=== PATIENT | female | born 1985 | race Caucasian/White ===

== ENCOUNTER 2019-07-30 11:39 | Emergency (ER) | payer BC, OTHER ==
[~2019-07-30] VITALS: Ht 172.7 cm; Wt 127.0 kg
--- NOTE | 2019-07-30 11:39 | NUR ---
BROUGHT BACK TO BED #5 AND TRIAGED. REPORT GIVEN TO PRASANNA
[2019-07-30 11:40] VITALS: BP_SYST 134
--- NOTE | 2019-07-30 11:41 | NUR ---
Patient to ER bed 05 to gown for evaluation. Side rails up.
[2019-07-30] MEDS ORDERED: LORazepam 2 MG/ML VIAL IM ONE (11:45)
--- NOTE | 2019-07-30 11:45 | NUR ---
Pt came to ER for anxiety and heart skipping beats. 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
--- NOTE | 2019-07-30 11:48 | NUR ---
ER at bedside examining patient.
[2019-07-30 13:00] VITALS: BP_SYST 134
--- NOTE | 2019-07-30 13:03 | NUR ---
Patient given written and verbal discharge instructions and verbalizes understanding. ER MD discussed with patient the results and treatment provided. Patient in stable condition. ID arm band removed. No Rx given. Patient educated on pain management and to follow up with PMD. Pain Scale 0/10 . Opportunity for questions provided and answered. Medication side effect fact sheet provided.
== END 2019-07-30 13:03 | disposition home or self-care (01) ==
LOC: SED 11:39
DX: F41.9 Anxiety disorder, unspecified (principal); R00.2 Palpitations; I10 Essential (primary) hypertension
CPT/HCPCS: 93005; 96372; 99283; J2060